=== PATIENT | male | born 1950 | race Two or more races ===

== ENCOUNTER 2017-08-15 13:21 | Emergency (ER) | payer OTHER ==
[~2017-08-15] VITALS: Ht 172.7 cm; Wt 76.2 kg
[2017-08-15 14:22] LABS: BASOPHIL (%) 0.2 % (0-1); EOSINOPHIL (%) 0 % (0-5); HEMOGLOBIN 15.2 G/DL (12.5-16.6); IMMATURE GRANULOCYTE (%) 0.5 % (0.0-0.7); LYMPHOCYTE (%) 8.5 % (15-42); LYMPHOCYTE COUNT 1.1 K/uL (1.0-2.8); MCH 26.4 PG (29.0-34.0); MCHC 32.3 G/DL (30.0-36.0); MCV 81.6 FL (86-99); MONOCYTE COUNT 0.8 K/uL (0-0.8); NEUTROPHIL (%) 84.8 % (45-76); NEUTROPHIL COUNT 10.8 K/uL (1.8-6.4); PLATELET COUNT 167 K/uL (156-360); RBC DIS.WIDTH-CV 13.5 % (11.8-14.6); RBC DIS.WIDTH-SD 39.8 % (39-53); RED BLOOD COUNT 5.76 M/uL (4.00-5.50); WHITE BLOOD COUNT 12.8 K/uL (4.1-10.2)
[2017-08-15 15:21] LABS: ALBUMIN 3.7 G/DL (3.2-4.8); CHLORIDE 107 MEQ/L (99-109); POTASSIUM 4.8 MEQ/L (3.7-5.4); SODIUM 139 MEQ/L (136-147); TOTAL BILIRUBIN 0.3 MG/DL (0.0-1.0)
[2017-08-15 15:27] LABS: ALKALINE PHOSPHATASE 65 IU/L (3-129); ALT (GPT) 19 IU/L (3-49); AST (GOT) 22 IU/L (2-34); CREATININE 1.1 MG/DL (0.6-1.3); GFR ESTIMATE (CALCULATED) > 59 mL/min/ (58.99-99999); GLUCOSE 123 mg/dL (70-99); LIPASE 28 U/L (1.0-51.0); TOTAL PROTEIN 6.6 G/DL (6.4-8.3); UREA NITROGEN (BUN) 21 mg/dL (9-23)
[2017-08-15 16:05] LABS: APPEARANCE CLEAR ((CLEAR)); BILIRUBIN NEGATIVE; BLOOD SMALL; COLOR YELLOW ((YELLOW)); GLUCOSE (STRIP) 50; KETONES NEGATIVE; LEUKOCYTES NEGATIVE; NITRITE NEGATIVE; PROTEIN (STRIP) 30; SPECIFIC GRAVITY 1.024 (1.000-1.030); UROBILINOGEN 0.2 MG/DL (0.2-1.0)
[2017-08-15 16:10] LABS: BACTERIA NONE SEEN /HPF; EPITHELIAL CELLS NONE SEEN /HPF; MUCUS TRACE /LPF; RED BLOOD CELLS 0-5 /HPF (0-5); WHITE BLOOD CELLS 0-5 /HPF (0-5)
[2017-08-15] MEDS ORDERED: PERCOCET 5/31 TABLET PO (17:11)
[2017-08-15] MEDS ORDERED: ZOFRAN4 MG PO (17:11)
[2017-08-15 17:25] VITALS: BP 161/86
== END 2017-08-15 17:27 | disposition home or self-care (01) ==
LOC: EME 13:21
PROVIDERS: Emergency Medicine
DX: N20.0 Calculus of kidney (principal); Z87.442 Personal history of urinary calculi; I10 Essential (primary) hypertension; E78.5 Hyperlipidemia, unspecified; E11.9 Type 2 diabetes mellitus without complications; K21.9 Gastro-esophageal reflux disease without esophagitis; J45.909 Unspecified asthma, uncomplicated
CPT/HCPCS: 74177; 80053; 81003; 83605; 83690; 85025; 99281; 99284; J2405; J7030

== ENCOUNTER 2017-09-30 05:26 | Day surgery (SDC) | payer OTHER ==
[~2017-09-30] VITALS: Ht 167.6 cm; Wt 72.5 kg
[~2017-09-30 05:26] MED LIST: AVAPRO75 MG PO; FLOMAX0.4 MG PO; LIPITOR10 MG PO; LO-DOSE ASPIRIN81 M2 PO; METFORMIN HCL1000 M3 PO; PERCOCET 5/31 TABLET PO; PROTONIX40 MG PO; SYMBICORT60 INHALAT IH; ZANTAC300 MG PO; ZOFRAN4 MG PO
[2017-09-30 06:00] VITALS: BP 134/62
[2017-09-30 10:03] VITALS: BP 178/80
[2017-09-30 11:04] VITALS: BP 175/78
[2017-09-30] MEDS ORDERED: PANTOPRAZOLE SO40 MG PO (23:55)
[2017-09-30] MEDS ORDERED: FORTAMET500 M1 PO (23:56)
[2017-09-30] MEDS ORDERED: CELECOXIB200 MG PO (23:57)
[2017-09-30] MEDS ORDERED: RANITIDINE HCL300 MG PO (23:58)
[2017-09-30] MEDS ORDERED: TAMSULOSIN HCL0.4 MG PO (23:59)
[2017-09-30] MEDS ORDERED: IRBESARTAN75 MG PO (23:59)
[2017-10-01] MEDS ORDERED: ZAFIRLUKAST20 M1 PO (00:01)
[2017-10-01] MEDS ORDERED: CIPROFLOXACIN500 M1 PO (12:21)
[2017-10-01] MEDS ORDERED: DILAUDID2 MG PO (12:21)
== END 2017-09-30 11:07 | disposition home or self-care (01) ==
LOC: SDC 05:26
PROVIDERS: Urology
DX: N20.1 Calculus of ureter (principal); N40.1 Benign prostatic hyperplasia with lower urinary tract symptoms; R39.12 Poor urinary stream; Z87.442 Personal history of urinary calculi; Z84.1 Family history of disorders of kidney and ureter; Z82.49 Family history of ischemic heart disease and other diseases of the circulatory system; Z83.3 Family history of diabetes mellitus; Z84.2 Family history of other diseases of the genitourinary system
CPT/HCPCS: 82948; 93005; C1769; C2625; J0330; J0690; J2405; J3010

== ENCOUNTER 2017-09-30 19:30 | Observation (INO) | payer OTHER ==
[~2017-09-30] VITALS: Ht 172.7 cm; Wt 76.5 kg
[2017-09-30 20:18] LABS: BASOPHIL (%) 0.2 % (0-1); EOSINOPHIL (%) 0.2 % (0-5); HEMATOCRIT 41.9 % (38.0-50.0); HEMOGLOBIN 13.6 G/DL (12.5-16.6); IMMATURE GRANULOCYTE (%) 0.3 % (0.0-0.7); LYMPHOCYTE (%) 12.6 % (15-42); LYMPHOCYTE COUNT 1.1 K/uL (1.0-2.8); MCH 26.4 PG (29.0-34.0); MCHC 32.5 G/DL (30.0-36.0); MCV 81.4 FL (86-99); MONOCYTE (%) 6.3 % (3-12); MONOCYTE COUNT 0.6 K/uL (0-0.8); NEUTROPHIL (%) 80.4 % (45-76); NEUTROPHIL COUNT 7.2 K/uL (1.8-6.4); PLATELET COUNT 157 K/uL (156-360); RBC DIS.WIDTH-CV 13.7 % (11.8-14.6); RBC DIS.WIDTH-SD 40.3 % (39-53); RED BLOOD COUNT 5.15 M/uL (4.00-5.50); WHITE BLOOD COUNT 8.9 K/uL (4.1-10.2)
[2017-09-30 20:29] LABS: BILIRUBIN NEGATIVE; BLOOD LARGE; GLUCOSE (STRIP) 150; KETONES NEGATIVE; LEUKOCYTES SMALL; NITRITE NEGATIVE; PROTEIN (STRIP) 100; SPECIFIC GRAVITY 1.016 (1.000-1.030); UROBILINOGEN 0.2 MG/DL (0.2-1.0)
[2017-09-30 20:30] LABS: APPEARANCE CLOUDY ((CLEAR)); BACTERIA NONE SEEN /HPF; COLOR RED ((YELLOW)); EPITHELIAL CELLS NONE SEEN /HPF; MUCUS NONE SEEN /LPF; RED BLOOD CELLS TNTC /HPF (0-5); UCUL ADDED? YES; WHITE BLOOD CELLS 0-5 /HPF (0-5)
[2017-09-30 20:37] LABS: ALBUMIN 3.9 g/dL (3.2-4.8); CHLORIDE 107 mEq/L (99-109); POTASSIUM 4.3 mEq/L (3.7-5.4); SODIUM 139 mEq/L (136-147)
[2017-09-30 20:39] LABS: GLUCOSE 153 mg/dL (70-99)
[2017-09-30 20:41] LABS: TOTAL BILIRUBIN 0.4 mg/dL (0.0-1.0)
[2017-09-30 20:43] LABS: ALKALINE PHOSPHATASE 83 IU/L (3-129); GFR ESTIMATE (CALCULATED) > 59 mL/min/ (58.99-99999)
[2017-09-30 20:44] LABS: AST (GOT) 20 IU/L (2-34); UREA NITROGEN (BUN) 14 mg/dL (9-23)
[2017-09-30 20:46] LABS: ALT (GPT) 19 IU/L (3-49)
[2017-09-30] MEDS ORDERED: PANTOPRAZOLE SO40 MG PO (23:55)
[2017-09-30] MEDS ORDERED: FORTAMET500 M1 PO (23:56)
[2017-09-30] MEDS ORDERED: CELECOXIB200 MG PO (23:57)
[2017-09-30] MEDS ORDERED: RANITIDINE HCL300 MG PO (23:58)
[2017-09-30] MEDS ORDERED: TAMSULOSIN HCL0.4 MG PO (23:59)
[2017-09-30] MEDS ORDERED: IRBESARTAN75 MG PO (23:59)
[2017-10-01] MEDS ORDERED: ZAFIRLUKAST20 M1 PO (00:01)
[2017-10-01 00:30] VITALS: BP 156/75
[2017-10-01 06:15] LABS: BASOPHIL (%) 0.1 % (0-1); EOSINOPHIL (%) 1.2 % (0-5); EOSINOPHIL COUNT 0.1 K/uL (0-0.3); IMMATURE GRANULOCYTE (%) 0.5 % (0.0-0.7); LYMPHOCYTE (%) 24.1 % (15-42); MCH 26.7 PG (29.0-34.0); MCHC 32.5 G/DL (30.0-36.0); MCV 82.1 FL (86-99); MONOCYTE (%) 9.5 % (3-12); MONOCYTE COUNT 0.8 K/uL (0-0.8); NEUTROPHIL (%) 64.6 % (45-76); NEUTROPHIL COUNT 5.3 K/uL (1.8-6.4); PLATELET COUNT 157 K/uL (156-360); RBC DIS.WIDTH-CV 13.8 % (11.8-14.6); RBC DIS.WIDTH-SD 41.1 % (39-53); RED BLOOD COUNT 4.87 M/uL (4.00-5.50); WHITE BLOOD COUNT 8.2 K/uL (4.1-10.2)
[2017-10-01 06:30] LABS: CHLORIDE 105 MEQ/L (99-109); GFR ESTIMATE (CALCULATED) > 59 mL/min/ (58.99-99999); GLUCOSE 116 mg/dL (70-99); POTASSIUM 4.1 MEQ/L (3.7-5.4); SODIUM 139 MEQ/L (136-147); UREA NITROGEN (BUN) 13 mg/dL (9-23)
[2017-10-01 11:19] VITALS: BP 138/83
[2017-10-01] MEDS ORDERED: CIPROFLOXACIN500 M1 PO (12:21)
[2017-10-01] MEDS ORDERED: DILAUDID2 MG PO (12:21)
== END 2017-10-01 12:58 | disposition home or self-care (01) ==
LOC: EME 19:30 → EDOF 23:08 → ENRESERV 23:12 → EDOF 10-01 00:12 → 5WEST 10-01 00:14
PROVIDERS: Emergency Medicine Emergency Medical Services; Internal Medicine
DX: G89.18 Other acute postprocedural pain (principal); N20.0 Calculus of kidney; Z98.890 Other specified postprocedural states; J45.909 Unspecified asthma, uncomplicated; E11.9 Type 2 diabetes mellitus without complications; E78.5 Hyperlipidemia, unspecified; I10 Essential (primary) hypertension; K21.9 Gastro-esophageal reflux disease without esophagitis; R11.0 Nausea; Z82.49 Family history of ischemic heart disease and other diseases of the circulatory system; Z83.3 Family history of diabetes mellitus; Z79.84 Long term (current) use of oral hypoglycemic drugs; Z79.82 Long term (current) use of aspirin
CPT/HCPCS: 80048; 80053; 81003; 84484; 85025; 87077; 87086; 87186; 99202; 99281; 99285; G0378; J1170; J2405; J3010; J7030; J7040